=== PATIENT | female | born 1985 | race Caucasian/White ===

== ENCOUNTER 2017-07-08 12:02 | Emergency (ER) | payer OTHER ==
[~2017-07-08] VITALS: Ht 162.6 cm; Wt 55.9 kg
[~2017-07-08 12:02] MED LIST: ATIVAN0.5 MG PO; CEPHALEXIN 500500 M3 PO; HYDROCODONE-AP1 EAC6 PO; LEXAPRO 10 MG T10 M1 PO; LEXAPRO 10 MG T10 M2 PO; MEDROLDOSEPACK PO; NOHOMEMEDICATIONS; PHENERGAN 25 MG25 M1 PO; PREDNISONE 5 MG5 M1 PO; PROAIR HFA8.5 GM INH; PROMS25 WY RECTAL; ZOFRAN ODT4 MG DISSOLVE; ZOFRAN ODT4 MG SUBLING
[2017-07-08] MEDS ORDERED: METHIMAZOLE5 MG PO (12:18)
[2017-07-08] MEDS ORDERED: HYDROXYCHLOROQ200 M1 PO (12:18)
[2017-07-08] MEDS ORDERED: VITAMIN D250000 UNIT PO (12:19)
[2017-07-08 12:29] LABS: ABSOLUTE BASOPHILS 0.1 thou/uL (0.0-0.2); ABSOLUTE EOSINOPHILS 0.1 thou/uL (0.0-0.7); ABSOLUTE LYMPHOCYTES 1.3 thou/uL (0.8-5.3); ABSOLUTE MONOCYTES 0.7 thou/uL (0.0-1.2); ABSOLUTE NEUTROPHILS 4.7 thou/uL (1.6-8.1); BASOPHILS 1.6 %; EOSINOPHILS 0.9 %; LYMPHOCYTES 19.5 %; MCH 30.5 pg (26.0-34.0); MCHC 34.1 g/dL (28.0-37.0); MCV 89.5 fL (80.0-100.0); MONOCYTES 10.5 %; MPV 9.2 fl. (7.2-11.1); NUCLEATED RBCS 0 /100WBC; PLATELET COUNT* 248 thou/uL (150-400); POLYS 67.5 %; RBC 5.25 mil/uL (4.20-5.00); RDW-CV 13.3 % (10.5-14.5); WBC 6.9 thou/uL (4.0-11.0)
[2017-07-08 12:35] LABS: ANION GAP 14 mmol/L (7-16); BUN 11 mg/dL (7-18); CALCIUM 9.5 mg/dL (8.5-10.1); CHLORIDE 104 mmol/L (98-107); CO2 23 mmol/L (21-32); CREATININE 0.9 mg/dL (0.6-1.3); GLUCOSE 92 mg/dL (70-99); SODIUM 141 mmol/L (136-145)
[2017-07-08 12:39] LABS: APTT 29.7 Seconds (25.0-31.3); INR 1.1; PROTIME 10.7 Seconds (9.20-11.50)
[2017-07-08 12:42] LABS: ALBUMIN 4.8 g/dL (3.4-5.0); ALKALINE PHOSPHATASE 50 U/L (46-116); SGOT 17 U/L (15-37); SGPT 20 U/L (30-65); TOTAL BILIRUBIN 0.8 mg/dL (<0.1-1.0); TOTAL PROTEIN 8.2 g/dL (6.4-8.2); TROPONIN-I LEVEL <0.06 ng/mL (<0.06)
[2017-07-08 13:40] LABS: URINE BLOOD NEGATIVE (Negative); URINE CLARITY CLEAR; URINE COLOR YELLOW; URINE GLUCOSE-RANDOM NEGATIVE (Negative); URINE LEUKOCYTES-REFLEX NEGATIVE (Negative); URINE NITRITE-REFLEX NEGATIVE (Negative); URINE PROTEIN NEGATIVE (Negative); URINE SPECIFIC GRAVITY >= 1.030 (1.005-1.030); URINE UROBILINOGEN 0.2 E.U./dl (0.2-1.0)
[2017-07-08 13:41] LABS: URINE KETONES 3+ (Negative)
[2017-07-08 13:42] LABS: ICTOTEST (BILI CONFIRMATORY) Negative (Negative); URINE BILIRUBIN 1+ (Negative); URINE REDUCING SUBSTANCE NEGATIVE (Negative)
--- NOTE | 2017-07-08 15:08 | EKG ---
[place] [address] ELECTROCARDIOGRAM REPORT Name: PABLOMIKIE JONES Room: [facility]#: [id number] Admission: 07/08/17 Attend Phys: Discharge: Date of : 81 Report #: [id number] THIS REPORT FOR: //name// [facility] ED Test Date: 2017-07-08 Test Time: 12:11:19 Pat Name: MIKIE SHAH Department: Room: Gender: F [employer]: DONN : 1985 Requested By: Leona Lynn Order Number: [id number] MD: Rony Linder Measurements Intervals [place] Rate: 128 P: -22 [place]: 121 QRS: -3 QRSD: 82 T: 114 QT: 276 QTc: 403 Interpretive Statements Sinus tachycardia Consider right atrial enlargement Nonspecific repol abnormality, lateral leads Compared to ECG 12/20/2016 15:00:12 Early repolarization now present Sinus rhythm no longer present Electronically Signed On 07-08-2017 15:07:52 CDT by Rony Linder [email or web address] <ELECTRONICALLY SIGNED> By: Rony Linder MD, [facility] 07/08/17 1507 1211 10 Rony Linder MD, FAC /EPI
[2017-07-08 19:00] VITALS: BP 95/54
== END 2017-07-08 19:00 | disposition short-term general hospital (02) ==
LOC: M.ERS 12:02
PROVIDERS: Personal Emergency Response Attendant
DX: E06.0 Acute thyroiditis (principal); K31.84 Gastroparesis; D68.0 Von Willebrand disease; F17.200 Nicotine dependence, unspecified, uncomplicated; Z90.49 Acquired absence of other specified parts of digestive tract; Z88.8 Allergy status to other drugs, medicaments and biological substances